=== PATIENT | female | born 1995 | race Caucasian/White ===

== ENCOUNTER → 2018-09-26 | Outpatient (CLI) | payer BC | LOC: SUN.DIA 16:05 | DX: K90.0 Celiac disease (principal); Z71.3 Dietary counseling and surveillance ==

== ENCOUNTER → 2018-12-09 | Outpatient (CLI) | payer BC | LOC: COL.CARD 12:05 | DX: R40.4 Transient alteration of awareness (principal) ==

== ENCOUNTER 2019-06-23 14:35 | Emergency (ER) | payer BC ==
[~2019-06-23] VITALS: Ht 162.6 cm; Wt 62.7 kg
[2019-06-23 15:32] VITALS: BP 121/83; TEMP 97.6
[2019-06-23] MEDS ORDERED: SYNTHROID0.05 MG/TA PO (15:36)
[2019-06-23] MEDS ORDERED: SPRINTEC 35 MCG1 TAB PO (15:37)
[2019-06-23] MEDS ORDERED: ZOLOFT 50MG50 MG PO (15:37)
[2019-06-23 18:36] LABS: COLLECTION METHOD CLEAN CATCH
[2019-06-23 18:40] LABS: BASO # 0.1 (0.0-0.2); BASO % 0.8 % (0.0-2.0); EOS # 0.4 (0.0-0.7); EOS % 5.1 % (0-4.0); GRAN # 4.5 (1.4-6.5); GRAN % 59.1 % (42.2-75.2); HEMATOCRIT 39.9 % (37.0-47.0); LYMPH # 2.1 (1.2-3.4); MEAN CELL VOLUME 85 fl (80.0-100.0); MEAN CORPUSCULAR HEMOGLOBIN 28 pg (27.0-31.0); MEAN CORPUSCULAR HGB CONC 33 g/dl (33.0-37.0); MEAN PLATELET VOLUME 9.3 fl (7.4-10.4); MONO # 0.5 (0.1-0.6); MONO % 6.7 % (1.7-9.3); PLATELET COUNT 214 K/mm3 (130-400); RED BLOOD COUNT 4.67 M/mm3 (4.10-5.30); REDCELL DISTRIBUTION WIDTH-CV 13.9 % (11.5-14.5)
[2019-06-23 18:44] LABS: PH 8 (5-8); SQUAMOUS EPITHELIAL 0-2 /hpf; URINE APPEARANCE Clear; URINE BACTERIA Occasional /hpf; URINE BILIRUBIN Negative (NEGATIVE); URINE BLOOD 1+ (NEGATIVE); URINE COLOR Straw; URINE GLUCOSE Negative (NEGATIVE); URINE KETONE Negative (NEGATIVE); URINE LEUKOCYTE ESTERASE Negative (NEGATIVE); URINE NITRATE Negative (NEGATIVE); URINE PROTEIN(semi-quant) Negative (NEGATIVE); URINE RBC 0-2 /hpf; URINE UROBILINOGEN Negative (NEGATIVE)
[2019-06-23 18:50] LABS: ALBUMIN 4.6 gm/dL (3.5-5.0); BILIRUBIN,TOTAL 0.7 mg/dL (0.0-1.0); C-REACTIVE PROTEIN 0.6 mg/dL (0.0-0.9); CALCIUM 9.2 mg/dL (8.4-10.2); CREATININE, serum 0.56 (0.52-1.25); TOTAL PROTEIN 7.7 gm/dL (6.4-8.2)
[2019-06-23 19:26] VITALS: PULSE 89
== END 2019-06-23 19:26 | disposition home or self-care (01) ==
LOC: COL.ER 14:35
PROVIDERS: Emergency Medicine; Physician Assistant
DX: R10.84 Generalized abdominal pain (principal)